=== PATIENT | female | born 1965 | race Caucasian/White ===

== ENCOUNTER → 2016-11-12 | Outpatient (CLI) | payer BC ==
--- NOTE | 2016-11-14 12:36 | MM ---
Reason for exam: screening (asymptomatic). Last mammogram was performed 1 year ago. History: Patient is postmenopausal. Family history of breast cancer in grandmother. Physical Findings: A clinical breast exam by your physician is recommended on an annual basis and results should be correlated with mammographic findings. MG Screening Mammo w CAD Bilateral CC and MLO view(s) were taken. Prior study comparison: November 06, 2015, bilateral MG screening mammo w CAD. October 03, 2014, bilateral MG screening mammo w CAD. October 12, 2010, bilateral digital screening mammo w/CAD. The breast tissue is heterogeneously dense. This may lower the sensitivity of mammography. No significant changes when compared with prior studies. ASSESSMENT: Negative, BI-RAD 1 RECOMMENDATION: Routine screening mammogram of both breasts in 1 year.
== END | disposition home or self-care (01) ==
LOC: RADMAMWWP 10:47
PROVIDERS: ATTEND Family Medicine
DX: Z12.31 Encounter for screening mammogram for malignant neoplasm of breast (principal)

== ENCOUNTER → 2017-12-30 | Outpatient (CLI) | payer BC ==
--- NOTE | 2018-01-01 08:29 | MM ---
Reason for exam: screening (asymptomatic). Last mammogram was performed 1 year and 1 month ago. History: Patient is postmenopausal. Family history of breast cancer in grandmother. Physical Findings: A clinical breast exam by your physician is recommended on an annual basis and results should be correlated with mammographic findings. MG Screening Mammo w CAD Bilateral CC and MLO view(s) were taken. Prior study comparison: November 14, 2016, bilateral MG screening mammo w CAD. November 06, 2015, bilateral MG screening mammo w CAD. The breast tissue is heterogeneously dense. This may lower the sensitivity of mammography. No significant changes when compared with prior studies. ASSESSMENT: Benign, BI-RAD 2 RECOMMENDATION: Routine screening mammogram of both breasts in 1 year.
== END | disposition home or self-care (01) ==
LOC: RADMAMWWP 16:46
PROVIDERS: ATTEND Family Medicine
DX: Z12.31 Encounter for screening mammogram for malignant neoplasm of breast (principal)
CPT/HCPCS: 77067

== ENCOUNTER → 2018-01-14 | Outpatient (CLI) | payer BC ==
--- NOTE | 2018-01-14 20:34 | NM ---
EXAMINATION TYPE: NM hepatobiliary wo EF DATE OF EXAM: 01/14/2018 COMPARISON: NONE HISTORY: Right upper quadrant pain abdominal tenderness TECHNIQUE: After the intravenous administration of 4.8 mCi Tc 99m Mebrofenin hepatobiliary scintigrap hy is performed. Immediate images post injection. FINDINGS: There was prompt radiopharmaceutical activity throughout the liver, and prompt visualization of the b iliary tree and proximal small bowel. By 60 minutes following intravenous delivery of the radiopharma ceutical, there was no visualization of the gallbladder on the multiplanar images. So additional multiplanar imaging continued to 2.5 hours postinjection. At this point, still, the gal lbladder could not be visualized. The examination was terminated, with the patient requested to follo w-up with the ordering physician tomorrow morning. IMPRESSION: Nonvisualization of the gallbladder throughout the examination; these findings can correl ate with a clinical diagnosis of acute cholecystitis. Would advise correlation with laboratory values and with gallbladder ultrasound.
== END | disposition home or self-care (01) ==
LOC: RADNMMAIN 14:46
PROVIDERS: ATTEND Family Medicine
DX: K81.0 Acute cholecystitis (principal); R10.811 Right upper quadrant abdominal tenderness
CPT/HCPCS: 78226; A9537

== ENCOUNTER → 2018-01-23 | Outpatient (CLI) | payer BC ==
--- NOTE | 2018-01-23 07:46 | US ---
EXAMINATION TYPE: US abdomen complete DATE OF EXAM: 01/23/2018 COMPARISON: NONE CLINICAL HISTORY: R10.11 right upper quadrant pain. RUQ pain that comes and goes, patient is trying t o watch her intake of fatty foods that can irritate issue EXAM MEASUREMENTS: Liver Length: 17.3 cm Gallbladder Wall: 0.3 cm CBD: 1.2 cm Spleen: 8.5 cm Right Kidney: 10.7 x 4.5 x 3.8 cm Left Kidney: 10.2 x 4.0 x 5.7 cm Pancreas: wnl Liver: wnl Gallbladder: multiple folds at neck of GB with multiple stones seen, largest = 1.7cm, they appear to be non mobile Evidence for sonographic Whitfield's sign: NO, asked patient several times as I was pressing CBD: dilated with no obvious stone seen within duct Spleen: wnl Right Kidney: wnl Left Kidney: wnl Upper IVC: wnl Abd Aorta: wnl The liver is homogenous. The intrahepatic portion of the IVC and proximal abdominal aorta are within normal limits. The visualized portions of the pancreas are homogenous. The spleen is unremarkable. Kidneys are symmetric and free of hydronephrosis. No renal lesions are seen. IMPRESSION: 1. Multiple nonmobile gallstones with borderline gallbladder wall thickening. No pericholecystic flui d identified. Common bile duct is dilated.
== END | disposition home or self-care (01) ==
LOC: RADUSWWP 06:47
PROVIDERS: ATTEND Family Medicine
DX: K80.20 Calculus of gallbladder without cholecystitis without obstruction (principal); R10.811 Right upper quadrant abdominal tenderness
CPT/HCPCS: 76700

== ENCOUNTER 2018-03-09 06:27 | Day surgery (SDC) | payer BC ==
[2018-03-05 17:54] VITALS: BMI 33.0
[~2018-03-09 06:27] MED LIST: DEXAMETHASONE SOD PHOSPHATE 10 MG/ML 1 ML VIAL IV ONE; HEPARIN SODIUM,PORCINE 5,000 UNIT/ML 1 ML VIAL SQ ONE; LIDOCAINE 1% 20 ML VIAL (10MG/ML) FOR IV START INTRADERMA PRN; MORPHINE SULFATE 2 MG/ML SYRINGE IV PRN; ONDANSETRON 4 MG/2 ML VIAL IVP ONE; SCOPOLAMINE 1.5MG/72HR PATCH TRANSDERM ONE; ceFAZolin IN SWFI 2 GM/20 ML SYRINGE IVP ONE
[2018-03-09] MEDS: LACTATED RINGERS 1,000 ML IV SCH ×2 (06:43→13:33)
--- NOTE | 2018-03-09 08:00 | P.GSHP ---
History of Present Illness H&P Date: 03/09/18 Chief Complaint: Right upper quadrant pain [employer] Worker 53-year-old female referred from Dr. Lockett. Patient presents today for laparoscopic cholecystectomy. She's had complaints of right quadrant pain. She is recently found have cholelithiasis. Past Medical History Past Medical History: Asthma, GERD/Reflux, Thyroid Disorder Additional Past Medical History / Comment(s): hx. heart murmur due to rheumatic fever as a child, intermittent abd pain, states has stone in bile duct History of Any Multi-Drug Resistant Organisms: None Reported Past Surgical History: Orthopedic Surgery Additional Past Surgical History / Comment(s): ORIF left ankle Past Anesthesia/Blood Transfusion Reactions: No Reported Reaction Smoking Status: Never smoker - Past Family History Father Family Medical History: Cancer Medications and Allergies Home Medications Medication Instructions Recorded Confirmed Type Fluticasone/Salmeterol [Advair 1 inhalation PO DAILY 03/05/18 03/09/18 History 100-50 Diskus] Levothyroxine Sodium [Synthroid] 75 mcg PO DAILY 03/05/18 03/09/18 History Allergies Allergy/AdvReac Type Severity Reaction Status Date / Time diphenhydramine Allergy Rash/Hives Verified 03/09/18 06:43 [From Benadryl] Surgical - Exam Vital Signs Temp Pulse Resp BP Pulse Ox 97 F L 87 18 110/69 95 03/09/18 06:41 03/09/18 06:41 03/09/18 06:41 03/09/18 06:41 03/09/18 06:41 - General well developed, no distress - Eyes PERRL - ENT normal pinna - Neck no masses - Respiratory normal expansion - Cardiovascular Rhythm: regular - Abdomen Abdomen: soft, non tender Assessment and Plan Assessment: Symptomatic cholelithiasis. We'll perform laparoscopic cholecystectomy.
[2018-03-09] MEDS ORDERED: MIDAZOLAM 2 MG/2 ML VIAL ONE (08:03)
[2018-03-09] MEDS ORDERED: LIDOCAINE 1% INJ 10MG/ML (20 ML MDV) ONE (08:03)
[2018-03-09] MEDS ORDERED: PROPOFOL 10 MG/ML 20 ML VIAL IV ONE (08:03)
[2018-03-09] MEDS ORDERED: VECURONIUM 10 MG VIAL IV ONE (08:03)
[2018-03-09] MEDS ORDERED: GLYCOPYRROLATE 0.2 MG/ML 2 ML VIAL ONE (08:03)
[2018-03-09] MEDS ORDERED: fentaNYL (PF) 50 MCG/ML 2 ML AMP ONE (08:03)
[2018-03-09] MEDS ORDERED: HYDROmorphone (PF) 1 MG/ML ONE (08:03)
[2018-03-09] MEDS ORDERED: SUCCINYLCHOLINE CHLORIDE 100 MG/5 ML SYR IV ONE (08:03)
[2018-03-09] MEDS ORDERED: NEOSTIGMINE 1 MG/ML 10 ML VIAL ONE (08:03)
[2018-03-09] MEDS ORDERED: LIDOCAINE 1%-EPI 1:100,000 30 ML VIAL SQ ONE (08:32)
[2018-03-09] MEDS ORDERED: LACTATED RINGERS 1,000 ML IV ONE (08:51)
--- NOTE | 2018-03-09 09:18 | P.OP ---
Date of Procedure: 03/09/18 Preoperative Diagnosis: Cholelithiasis Chronic cholecystitis Postoperative Diagnosis: Cholelithiasis Chronic cholecystitis Procedure(s) Performed: Laparoscopic cholecystectomy Anesthesia: DILMA Surgeon: Lukas Delatorre Estimated Blood Loss (ml): 5 Pathology: other (Gallbladder) Condition: stable Disposition: PACU Description of Procedure: The patient was placed on the operating table. The patient received a general endotracheal tube anesthesia. The patients abdomen was prepped and draped in the usual sterile fashion. Through an infraumbilical stab incision, the fascia of the anterior abdominal wall was grasped with a pair of Kochers and then the Veress needle was placed in the peritoneal cavity. Position of the Veress needle was confirmed with positive drop test. The abdomen was then insufflated. After adequate insufflation, the 10 mm trocar was placed in the peritoneal cavity. Following this the laparoscope was placed in the peritoneal cavity. The patient was placed in the head-up, right side up position and then a 5 mm trocar was placed in the right lateral and right subcostal position under direct visualization. A 8 mm trocar was placed in the epigastric position. The gallbladder was grasped in the fundus and infundibulum. Traction on the gallbladder was placed in the lateral and the cephalad positions. The triangle of Calot was visualized.. The cystic duct was bluntly dissected until the union of the cystic duct and common bile duct was seen. The cystic duct was then divided and sealed with the Harmonic scissors. A PDS Endoloop was then placed throughout the cystic duct stump. The cystic artery divided and sealed with the Harmonic scissors. The gallbladder was then removed from the liver bed using Harmonic scissors. The gallbladder was then extracted through the epigastric port site. Operative field was checked for any bleeding spots and Harmonic scissors was used to coagulate the liver bed. The abdomen was irrigated. The trocars were removed. The skin was closed using interrupted 3-0 Vicryl suture. Dermabond dressing were applied. The patient tolerated the procedure well.
[2018-03-09 09:28] VITALS: TEMP 97.1
[2018-03-09] MEDS ORDERED: HYDROmorphone 1 MG/ML 1 ML SYRINGE IVP ONE ×2 (09:47→09:52)
[2018-03-09] MEDS ORDERED: KETOROLAC 30 MG/ML 1 ML VIAL IVP ONE (09:49)
[2018-03-09 12:59] VITALS: RESP 18
[2018-03-09] MEDS ORDERED: PROMETHAZINE INJ 25 MG/ML 1 ML VIAL IVPB ONE (13:40)
[2018-03-09 14:40] VITALS: BP 142/81
[2018-03-09 15:29] VITALS: PULSE 80
== END 2018-03-09 16:06 | disposition home or self-care (01) ==
LOC: OR 06:27
PROVIDERS: ATTEND Surgery
DX: K80.10 Calculus of gallbladder with chronic cholecystitis without obstruction (principal); K21.9 Gastro-esophageal reflux disease without esophagitis; J45.909 Unspecified asthma, uncomplicated; E07.9 Disorder of thyroid, unspecified; R01.1 Cardiac murmur, unspecified; Z79.890 Hormone replacement therapy; Z79.51 Long term (current) use of inhaled steroids; Z88.8 Allergy status to other drugs, medicaments and biological substances
CPT/HCPCS: 88304; 88302; 47562; J2250; J1644; J1100; J2550; J2710; J2405; J2001; J3010; J1885; J1170; J0330; J2704; J0690

== ENCOUNTER → 2018-09-17 | Outpatient (CLI) | payer BC ==
--- NOTE | 2018-09-17 09:18 | FL ---
ESOPHOGRAM. HISTORY: Dysphagia Esophagram was performed per the air contrast technique. The patient swallowed barium and effervesce nt crystals without difficulty or delay. Esophageal peristalsis and motility appear to be within normal limits. There is no evidence for filling defect, mass or diverticulum. There is small reducible sliding type hiatal hernia noted. Mildly prominent distal esophageal folds m ay reflect esophagitis. Subsequently single contrast cervical esophagram was performed which fails demonstrate evidence for a spiration penetration or mass. IMPRESSION: There is small reducible sliding type hiatal hernia noted. Mildly prominent distal esopha geal folds may reflect esophagitis.
== END | disposition home or self-care (01) ==
LOC: RADFLWHC 08:34
PROVIDERS: ATTEND Family Medicine
DX: K44.9 Diaphragmatic hernia without obstruction or gangrene (principal)
CPT/HCPCS: 74220

== ENCOUNTER → 2018-11-02 | Outpatient (CLI) | payer BC ==
--- NOTE | 2018-11-02 12:32 | US ---
EXAMINATION TYPE: US thyroid st tissue head/neck DATE OF EXAM: 11/02/2018 COMPARISON: NONE CLINICAL HISTORY: 53-year-old female R94.6 ABN THYROID FUNCTION RESULTS. TECHNIQUE: Multiple sonographic images of the thyroid gland are obtained. FINDINGS: GLAND SIZE: Right Lobe: 3.8 x 1.8 x 1.1 cm Overall Parenchyma: grossly heterogenous Left Lobe: 4.3 x 1.5 x 1.1 cm Overall Parenchyma: grossly heterogeneous Isthmus Thickness: 0.3 cm NODULES RIGHT: # of nodules measured on right: 0 LEFT: # of nodules measured on left: 0 ISTHMUS: # of nodules measured in the isthmus: 0 Bilateral neck scanned, no evidence of lymphadenopathy. There is a prominent but not enlarged lymph n ode measuring 1.5 x 0.7 x 0.5 cm in the left lateral neck. IMPRESSION: 1. Very heterogeneous thyroid gland could represent goiter. 2. No discrete, well-defined nodules are seen.
== END ==
LOC: RADUSWWP 08:55
PROVIDERS: ATTEND Family Medicine
DX: R94.6 Abnormal results of thyroid function studies (principal)
CPT/HCPCS: 76536

== ENCOUNTER → 2019-04-01 | Outpatient (CLI) | payer BC ==
--- NOTE | 2019-04-01 09:30 | BD ---
EXAMINATION TYPE: Axial Bone Density DATE OF EXAM: 04/01/2019 COMPARISON: NONE CLINICAL HISTORY: 54 YR OLD FEMALE....ICD-10 CODE: Z13.820 OSTEOPOROSIS SCREENING Height: 61 Weight: 184 FRAX RISK QUESTIONS: Family History (Parent hip fracture): YES Glucocorticoids (More than 3mos): YES (Ex: prednisone, prednisolone, methylprednisolone, dexamethasone, and hydrocortisone). RISK FACTORS HISTORY OF: HX OF LT ANKLE FX 2009 AT 45 YRS OLD, WITH SURGICAL REPAIR Family History of Osteoporosis: YES, GRANDMOTHER WITH HIP FX Active: YES Postmenopausal woman: YES, AT AGE 48 YRS OLD MEDICATIONS: Prednisone or other steroids: ADVAIR DISC, FOR ASTHMA, PRO AIR PRN How Long: MANY YRS Thyroid Medications: YES, SYNTHROID, FOR 10 YRS Additional Medications: XANAX, REFLUX MEDS PRN, STATIN FOR CHOLESTEROL, GESTATIONAL DIABETES, Additional History: ANXIETY, CHOLESTEROL EXAM MEASUREMENTS: Bone mineral densitometry was performed using the [employer] System. Bone mineral density as measured about the Lumbar spine is: ----- L1-L4(G/cm2): 1.057 T Score Values are as follows: ----- L1: -2.5 ----- L2: -1.2 ----- L3: 0.1 ----- L4: -0.8 ----- L1-L4: -1.0 Bone mineral density FIRST DEXA SCAN.....BASELINE STUDY Bone mineral density about the R hip (g/cm2): 0.995 Bone mineral density about the L hip (g/cm2): 1.016 T Score values are as follows: -----R Neck: -0.9 -----L Neck: -0.7 -----R Total: -0.1 -----L Total: 0.1 Bone mineral density BASELINE DEXA FRAX%s: THERE IS A 15.9% CHANCE FOR A MAJOR OSTEOPOROTIC FX AND A 0.4% FOR HIP.....PROBABILITY FOR FX IN 10 YRS TIME IMPRESSION: Osteopenia (T Score between -2.5 and -1) as noted by 2 consecutive levels in the upper lumbar spine. There is slightly increased risk of fracture and the patient may be considered for treatment. Re-Screen 2-5 years. NOTE: T-SCORE=SD OF THE YOUNG ADULT MEAN.
--- NOTE | 2019-04-02 11:42 | MM ---
Reason for exam: screening (asymptomatic). Last mammogram was performed 1 year and 3 months ago. History: Patient is postmenopausal. Family history of breast cancer in grandmother. Physical Findings: A clinical breast exam by your physician is recommended on an annual basis and results should be correlated with mammographic findings. MG Screening Mammo w CAD Bilateral CC and MLO view(s) were taken. Prior study comparison: December 30, 2017, bilateral MG screening mammo w CAD. November 14, 2016, bilateral MG screening mammo w CAD. The breast tissue is heterogeneously dense. This may lower the sensitivity of mammography. There is no discrete abnormality. No significant changes when compared with prior studies. ASSESSMENT: Negative, BI-RAD 1 RECOMMENDATION: Routine screening mammogram of both breasts in 1 year.
== END | disposition home or self-care (01) ==
LOC: RADMAMWWP 07:19
PROVIDERS: ATTEND Family Medicine
DX: Z12.31 Encounter for screening mammogram for malignant neoplasm of breast (principal); M85.88 Other specified disorders of bone density and structure, other site
CPT/HCPCS: 77067; 77080

== ENCOUNTER 2019-05-10 09:33 | Day surgery (SDC) | payer BC ==
[2019-05-10 10:11] VITALS: TEMP 97.4
[2019-05-10] MEDS ORDERED: LIDOCAINE 1% 20 ML VIAL (10MG/ML) FOR IV START INTRADERMA ONE (10:11)
[2019-05-10] MEDS ORDERED: LACTATED RINGERS 1,000 ML IV ONE (10:11)
[2019-05-10] MEDS ORDERED: PROPOFOL 10 MG/ML 20 ML VIAL IV ONE (10:37)
--- NOTE | 2019-05-10 11:08 | P.PCN ---
Date of Procedure: 05/10/19 Description of Procedure: BRIEF HISTORY: 54-year-old female who presents for outpatient colonoscopy. No prior colonoscopies reported. No change in bowel habits. No blood per rectum. Does report colon cancer in her mother diagnosed earlier in the year for which she has passed. Previously she underwent stool testing at the age of 50 she reports was negative. PROCEDURE PERFORMED: Colonoscopy. PREOPERATIVE DIAGNOSIS: High-risk screening for malignant neoplasm of the colon, family history of colon cancer and mother, no prior colonoscopies. ESTIMATED BLOOD LOSS: Minimal. IV sedation per Anesthesia. PROCEDURE: After informed consent was obtained, the patient, was brought into the endoscopy unit. IV sedation was administered by Anesthesia under continuous monitoring. Digital rectal examination was normal. Initially the Olympus CF-190 flexible video colonoscope was then inserted in the rectum, gradually advanced into the cecum without any difficulty. The terminal ileum was intubated and appeared normal. Careful examination was performed as the scope was gradually being withdrawn. Ileocecal valve and the appendiceal orifice were visualized and appeared normal. Prep was excellent. Mucosa of the cecum, ascending colon, transverse colon, descending colon, sigmoid colon, and rectum appeared normal. Retroflexion was performed in the rectum and no lesions were seen, mild internal hemorrhoids noted. The patient tolerated the procedure well. IMPRESSION: Normal-appearing colon from rectum to cecum. Mild internal hemorrhoids. RECOMMENDATIONS: Findings of this examination were discussed with the patient and her . Okay to resume diet. Repeat colonoscopy in 5 years for family history of colon cancer.
[2019-05-10 11:29] VITALS: BP 100/62; PULSE 67; RESP 18
== END 2019-05-10 11:50 | disposition home or self-care (01) ==
LOC: ORWHC2ENDO 09:33
PROVIDERS: ATTEND Internal Medicine
DX: Z12.11 Encounter for screening for malignant neoplasm of colon (principal); K64.8 Other hemorrhoids; Z80.0 Family history of malignant neoplasm of digestive organs; Z88.8 Allergy status to other drugs, medicaments and biological substances; J45.909 Unspecified asthma, uncomplicated; E07.9 Disorder of thyroid, unspecified; K21.9 Gastro-esophageal reflux disease without esophagitis; Z79.890 Hormone replacement therapy; Z79.891 Long term (current) use of opiate analgesic; Z79.899 Other long term (current) drug therapy
CPT/HCPCS: G0105; J2704; 45378

== ENCOUNTER → 2020-05-04 | Outpatient (CLI) | payer BC ==
--- NOTE | 2020-05-05 10:07 | MM ---
Reason for exam: screening (asymptomatic). Last mammogram was performed 1 year and 1 month ago. History: Patient is postmenopausal. Family history of breast cancer in grandmother. Physical Findings: A clinical breast exam by your physician is recommended on an annual basis and results should be correlated with mammographic findings. MG 3D Screening Mammo W/Cad Bilateral CC and MLO view(s) were taken. Prior study comparison: April 01, 2019, bilateral MG screening mammo w CAD. December 30, 2017, bilateral MG screening mammo w CAD. The breast tissue is heterogeneously dense. This may lower the sensitivity of mammography. There is no discrete abnormality. No significant changes when compared with prior studies. ASSESSMENT: Negative, BI-RAD 1 RECOMMENDATION: Routine screening mammogram of both breasts in 1 year.
== END | disposition home or self-care (01) ==
LOC: RADMAMWWP 15:28
PROVIDERS: ATTEND Obstetrics & Gynecology
DX: Z12.31 Encounter for screening mammogram for malignant neoplasm of breast (principal)
CPT/HCPCS: 77063; 77067

== ENCOUNTER → 2021-08-06 | Outpatient (CLI) | payer BC ==
--- NOTE | 2021-08-07 14:17 | MM ---
Reason for exam: screening (asymptomatic). Last mammogram was performed 1 year and 3 months ago. History: Patient is postmenopausal. Family history of breast cancer in grandmother. Physical Findings: A clinical breast exam by your physician is recommended on an annual basis and results should be correlated with mammographic findings. MG 3D Screening Mammo W/Cad Bilateral CC and MLO view(s) were taken. Prior study comparison: May 04, 2020, bilateral MG 3d screening mammo w/cad. April 01, 2019, bilateral MG screening mammo w CAD. The breast tissue is heterogeneously dense. This may lower the sensitivity of mammography. There is no discrete abnormality. ASSESSMENT: Negative, BI-RAD 1 RECOMMENDATION: Routine screening mammogram of both breasts in 1 year.
== END | disposition home or self-care (01) ==
LOC: RADMAMWWP 09:21
PROVIDERS: ATTEND Family Medicine
DX: Z12.31 Encounter for screening mammogram for malignant neoplasm of breast (principal); Z78.0 Asymptomatic menopausal state; Z80.3 Family history of malignant neoplasm of breast
CPT/HCPCS: 77063; 77067

== ENCOUNTER → 2021-12-28 | Day surgery (SDC) | payer BC ==
[2021-12-26 11:05] VITALS: BMI 33.4
[~2021-12-28] MED LIST changes: -DEXAMETHASONE SOD PHOSPHATE 10 MG/ML 1 ML VIAL IV ONE; -HEPARIN SODIUM,PORCINE 5,000 UNIT/ML 1 ML VIAL SQ ONE; +LACTATED RINGERS 1,000 ML IV SCH; +LIDOCAINE 1% (10MG/ML) FOR IV START INTRADERMA ONE; -LIDOCAINE 1% 20 ML VIAL (10MG/ML) FOR IV START INTRADERMA PRN; +LIDOCAINE 1% INJ 10MG/ML (20 ML MDV) ONE; -MORPHINE SULFATE 2 MG/ML SYRINGE IV PRN; -ONDANSETRON 4 MG/2 ML VIAL IVP ONE; +PROPOFOL 10 MG/ML 20 ML VIAL IV ONE; -SCOPOLAMINE 1.5MG/72HR PATCH TRANSDERM ONE; -ceFAZolin IN SWFI 2 GM/20 ML SYRINGE IVP ONE
[2021-12-28 10:28] VITALS: TEMP 97.2
--- NOTE | 2021-12-28 11:28 | P.PCN ---
Date of Procedure: 12/28/21 Procedure(s) Performed: BRIEF HISTORY: Patient is a 57-year-old, pleasant, female scheduled for an upper endoscopy as a part of evaluation of intermittent dysphagia to solids for the last few weeks duration. Prior history of gastroesophageal reflux but has not been on any medications currently.. PROCEDURE PERFORMED: Esophagogastroduodenoscopy with biopsy. PREOPERATIVE DIAGNOSIS: And GERD/intermittent dysphagia to solids. IV sedation per anesthesia. PROCEDURE: After informed consent was obtained, the patient was brought into the endoscopy unit. IV sedation was administered by Anesthesia under continuous monitoring. Initially the Olympus GIF-140 video endoscope was inserted into the mouth. Esophagus intubated without any difficulty. It was gradually advanced into the stomach and duodenum and carefully examined. The bulb and the second part of the duodenum appeared normal. The scope at this time was withdrawn to the stomach, adequately insufflated with air, and upon careful examination, mucosa of the antrum mild patchy areas of erythema which was biopsied. The, body, cardia and the fundus appeared normal. The scope was then withdrawn into the esophagus. The GE junction was located at 39 cm from the incisors. Small hiatal hernia noted. There was early distal esophageal stricture identified that was not dilated. At the GE junction and proximal to it there were erosions or ulcerations consistent with LA grade C reflux esophagitis. The esophagus appeared normal. There were no erosions or ulcerations seen and the patient tolerated the procedure well. IMPRESSION: 1. Early distal esophageal stricture. 2. Erosions or ulcerations in the distal esophagus consistent with LA grade C reflux esophagitis. 3. Small hiatal hernia and mild antral gastritis RECOMMENDATIONS: The findings of this examination were discussed with the patient as well as her family. She was advised to follow with the biopsy results. She'll be started on Prilosec 20 mg twice daily for 12 weeks followed by 20 mg daily for gastroesophageal reflux disease. She will follow up in office in 3 months..
[2021-12-28 12:16] VITALS: BP 106/62; PULSE 79; RESP 16
== END ==
LOC: ORWHC2ENDO 09:24
PROVIDERS: ATTEND Internal Medicine Gastroenterology
DX: K29.50 Unspecified chronic gastritis without bleeding (principal); K22.2 Esophageal obstruction; K44.9 Diaphragmatic hernia without obstruction or gangrene; J45.909 Unspecified asthma, uncomplicated; E07.9 Disorder of thyroid, unspecified; K21.9 Gastro-esophageal reflux disease without esophagitis; Z79.899 Other long term (current) drug therapy
CPT/HCPCS: 43239; 88305; J2001; J2704

== ENCOUNTER → 2022-08-12 | Outpatient (CLI) | payer BC ==
--- NOTE | 2022-08-13 09:20 | MM ---
Reason for Exam: Screening (asymptomatic). Last screening mammogram was performed 12 month(s) ago. Patient History: Menarche at age 13. First Full-Term at age 19. Postmenopausal. Maternal grandmother had breast cancer, age 27. Risk Values: Ivette 5 year model risk: 0.9%. NCI Lifetime model risk: 5.7%. Prior Study Comparison: 04/01/2019 Bilateral Screening Mammogram, [facility]. 05/04/2020 Bilateral Screening Mammogram, [facility]. 08/06/2021 Bilateral Screening Mammogram, [facility]. Tissue Density: The breast tissue is heterogeneously dense. This may lower the sensitivity of mammography. Findings: Analyzed By CAD. Benign-appearing bilateral axillary lymph nodes are redemonstrated. There is no suspicious group of microcalcifications or new suspicious mass in either breast. Overall Assessment: Negative, BI-RAD 1 Management: Screening Mammogram of both breasts in 1 year. A clinical breast exam by your physician is recommended on an annual basis and results should be correlated with mammographic findings. Electronically signed and approved by: Jaylen Win M.D.
== END | disposition home or self-care (01) ==
LOC: RADMAMWWP 10:16
PROVIDERS: ATTEND Obstetrics & Gynecology
DX: Z12.31 Encounter for screening mammogram for malignant neoplasm of breast (principal); Z78.0 Asymptomatic menopausal state; Z80.3 Family history of malignant neoplasm of breast
CPT/HCPCS: 77063; 77067

== ENCOUNTER → 2022-08-29 | Outpatient (CLI) | payer BC ==
--- NOTE | 2022-08-30 15:07 | BD ---
EXAMINATION TYPE: Axial Bone Density DATE OF EXAM: 08/29/2022 COMPARISON: 04-01-19 CLINICAL HISTORY: 57 years year old Female. ICD-10 CODE: Z13.820 SCREENING FOR OSTEOPOROSIS Height: 61IN Weight: 187LB FRAX RISK QUESTIONS: Glucocorticoids (More than 3mos): YES (Ex: prednisone, prednisolone, methylprednisolone, dexamethasone, and hydrocortisone). History of Fracture in Adulthood: YES Secondary Osteoporosis: RISK FACTORS HISTORY OF: Family History of Osteoporosis: YES Active: YES Postmenopausal woman: YES Lost more than 2 inches in height since high school: NO MEDICATIONS: Prednisone or other steroids: ADVAIR DISC FOR ASTHMA How Long: SEVERAL YEARS Thyroid Medications: Which medication: Synthroid How Lon YEARS Additional Medications: REFLUX MED Additional History: ANKLE FX EXAM MEASUREMENTS: Bone mineral densitometry was performed using the [employer] System. Bone mineral density as measured about the Lumbar spine is: ----- L1-L4(G/cm2): 0.978 T Score Values are as follows: ----- L1: -2.4 ----- L2: -2.5 ----- L3: -0.9 ----- L4: -1.3 ----- L1-L4: -1.7 Bone mineral density has: Decreased -9.4% since study of: 04-01-19 Bone mineral density about the R hip (g/cm2): 0.937 Bone mineral density about the L hip (g/cm2): 0.992 T Score values are as follows: -----R Neck: -1.0 -----L Neck: -0.9 -----R Total: -0.6 -----L Total: -0.1 Bone mineral density has: Decreased -4.2% since study of: 04-01-2019 FRAX%s: The graph provided illustrates a 16.6% chance for a major osteoporotic fx and a 1.1% chance f or the hips probability for fx in 10 years time. IMPRESSION: Osteopenia (T Score between -2.5 and -1). There is slightly increased risk of fracture and the patient may be considered for treatment. Re-Screen 2-5 years. NOTE: T-SCORE=SD OF THE YOUNG ADULT MEAN.
== END | disposition home or self-care (01) ==
LOC: RADBDWWP 09:54
PROVIDERS: ATTEND Family Medicine
DX: Z13.820 Encounter for screening for osteoporosis (principal); M81.0 Age-related osteoporosis without current pathological fracture; Z78.0 Asymptomatic menopausal state
CPT/HCPCS: 77080

== ENCOUNTER → 2023-08-18 | Outpatient (CLI) | payer BC ==
--- NOTE | 2023-08-18 10:21 | XR ---
EXAMINATION TYPE: XR cervical spine limited DATE OF EXAM: 08/18/2023 10:13 AM CLINICAL INDICATION:Female, 58 years old with history of M542 CERVICALGIA; COMPARISON: 08/18/2023. TECHNIQUE: The cervical spine was imaged in frontal, lateral, and odontoid. FINDINGS: The osseous structures show normal alignment without evidence of an acute fracture. There are osteoph ytes noted throughout the cervical spine on the anterior and lateral aspects of the vertebral bodies. The intervertebral disk spaces are narrowed at multiple levels Pedicles are intact. Soft tissues ar e within normal limits. The odontoid appears intact. IMPRESSION: 1. No fracture or dislocation. 2. Mild degenerative disc disease changes of the cervical spine.
--- NOTE | 2023-08-19 11:48 | MM ---
Reason for Exam: Screening (asymptomatic). Last mammogram was performed 1 year(s) and 1 month(s) ago. Patient History: Menarche at age 13. First Full-Term at age 19. Postmenopausal. Maternal grandmother had breast cancer, age 27. Risk Values: Ivette 5 year model risk: 1.0%. NCI Lifetime model risk: 5.6%. Prior Study Comparison: 05/04/2020 Bilateral Screening Mammogram, [facility]. 08/06/2021 Bilateral Screening Mammogram, [facility]. 08/12/2022 Bilateral MG 3D screening mammo w/cad, [facility]. Tissue Density: The breast tissue is heterogeneously dense. This may lower the sensitivity of mammography. Findings: Analyzed By CAD. There is no suspicious group of microcalcifications or new suspicious mass in either breast. Overall Assessment: Negative, BI-RAD 1 Management: Screening Mammogram of both breasts in 1 year. . Patient should continue monthly self-breast exams. A clinical breast exam by your physician is recommended on an annual basis. This exam should not preclude additional follow-up of suspicious palpable abnormalities. Note on Ivette scores and lifetime risk: 1. A Ivette score greater than 3% is considered moderate risk. If this is the case, consider specialist referral to assess eligibility for a risk reducing agent. 2. If overall lifetime risk for the development of breast cancer is 20% or higher, the patient may qualify for future screening with alternating mammogram and breast MRI. Electronically signed and approved by: Micah Sotomayor M.D. Radiologis
== END | disposition home or self-care (01) ==
LOC: RADMAMWWP 09:41
PROVIDERS: ATTEND Family Medicine
DX: Z12.31 Encounter for screening mammogram for malignant neoplasm of breast (principal); M50.30 Other cervical disc degeneration, unspecified cervical region; Z78.0 Asymptomatic menopausal state; Z80.3 Family history of malignant neoplasm of breast
CPT/HCPCS: 72040; 77063; 77067

== ENCOUNTER → 2023-09-22 | Outpatient (CLI) | payer BC ==
--- NOTE | 2023-09-22 13:35 | FL ---
EXAMINATION TYPE: FL barium swallow DATE OF EXAM: 09/22/2023 COMPARISON: None HISTORY: Dysphagia TECHNIQUE: A double air contrast esophagram study is performed. FINDINGS: Esophagus dilates to normal caliber has normal contour to the gastroesophageal junction. Ga stroesophageal junction opens to normal caliber. No intraluminal or extramural defects are evident. T here is complete stripping of the esophageal bolus the horizontal drinking position. End of the examination a self-criticism finding type hiatal hernia is identified with Schatzki's ring above the diaphragm. Fluoroscopy time: 39 seconds. DAP: 1671.98. Images: 114 IMPRESSION: 1. Small self reducing sliding type hiatal hernia.
== END | disposition home or self-care (01) ==
LOC: RADUSWWP 08:51
PROVIDERS: ATTEND Family Medicine
DX: K44.9 Diaphragmatic hernia without obstruction or gangrene (principal); R13.10 Dysphagia, unspecified
CPT/HCPCS: 74220

== ENCOUNTER → 2024-12-07 | Outpatient (CLI) | payer BC ==
--- NOTE | 2024-12-07 08:35 | MM ---
Reason for Exam: Screening (asymptomatic). Last mammogram was performed 1 year(s) and 3 month(s) ago. Patient History: Menarche at age 13. First Full-Term at age 19. Postmenopausal. Maternal grandmother had breast cancer, age 27. Risk Values: Ivette 5 year model risk: 1.0%. NCI Lifetime model risk: 5.5%. Prior Study Comparison: 08/06/2021 Bilateral Screening Mammogram, [facility]. 08/12/2022 Bilateral MG 3D screening mammo w/cad, [facility]. 08/18/2023 Bilateral MG 3D screening mammo w/cad, [facility]. Tissue Density: The breasts are heterogeneously dense, which may obscure small masses. Findings: Analyzed By CAD. There is no suspicious group of microcalcifications or new suspicious mass in either breast. Overall Assessment: Benign, BI-RAD 2 Management: Screening Mammogram of both breasts in 1 year. . Patient should continue monthly self-breast exams. A clinical breast exam by your physician is recommended on an annual basis. This exam should not preclude additional follow-up of suspicious palpable abnormalities. Note on Ivette scores and lifetime risk: 1. A Ivette score greater than 3% is considered moderate risk. If this is the case, consider specialist referral to assess eligibility for a risk reducing agent. 2. If overall lifetime risk for the development of breast cancer is 20% or higher, the patient may qualify for future screening with alternating mammogram and breast MRI. [facility], , 12/07/2024 8:32 AM. Electronically signed and approved by: Luis Carlos Mcarthur M.D. Radiologis
== END | disposition home or self-care (01) ==
LOC: RADMAMWWP 07:12
PROVIDERS: ATTEND Family Medicine
DX: Z12.31 Encounter for screening mammogram for malignant neoplasm of breast (principal); R92.333 Mammographic heterogeneous density, bilateral breasts; Z78.0 Asymptomatic menopausal state; Z80.3 Family history of malignant neoplasm of breast
CPT/HCPCS: 77063; 77067